=== PATIENT | female | born 1965 | race Caucasian/White ===

== ENCOUNTER 2018-05-16 20:41 | Emergency (ER) | payer BC, SELFPAY ==
[2018-05-16 20:42] VITALS: BP 166/84; PULSE 97; RESP 20; TEMP 36.9
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
[2018-05-16 22:56] VITALS: BP 121/66; PULSE 72; RESP 16; TEMP 36.6; O2SAT 100
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
== END 2018-05-16 23:39 | disposition home or self-care (01) ==
PROVIDERS: Emergency Provider Emergency Medicine
DX: T75.4XXA Electrocution, initial encounter (principal)
CPT/HCPCS: 93005; 93010; 99282; 99283